=== PATIENT | female | born 1960 | race African-American/Black ===

== ENCOUNTER 2018-03-02 15:12 | Outpatient (CLI) ==
--- NOTE | 2018-03-02 16:25 | DI ---
EXAM: Three views of the left foot. History: Left foot pain. Findings: No acute fracture or dislocation. No abnormal calcifications or radiopaque foreign bodies . Joint spaces are relatively preserved. Diffuse subcutaneous edema. Impression: No acute osseous abnormality. Subcutaneous edema
--- NOTE | 2018-03-02 16:26 | DI ---
EXAM: Three views of the left ankle. History: Left ankle pain. Findings: No acute fracture or dislocation. No abnormal calcifications or radiopaque foreign bodies . Joint spaces are relatively preserved. Diffuse subcutaneous edema. Impression: No acute osseous abnormality. Subcutaneous edema
== END 2018-03-02 15:13 | disposition home or self-care (01) ==
LOC: RAD 15:12
PROVIDERS: ATTEND Physician Assistant
DX: M25.572 Pain in left ankle and joints of left foot (principal)